=== PATIENT | female | born 1935 | race Two or more races ===

== ENCOUNTER 2023-09-19 12:03 | Emergency (ER) | payer OTHER ==
[~2023-09-19] VITALS: Ht 157.5 cm; Wt 59.0 kg
[2023-09-19 13:33] LABS: BASOPHILS % (AUTO) 0.2 % (0.0-2.0); HEMATOCRIT 34 % (33-45); HEMOGLOBIN 11.3 g/dL (11.5-14.8); LYMPHOCYTES # (AUTO) 0.5 K/uL (0.8-4.8); LYMPHOCYTES % (AUTO) 3.9 % (20.0-44.0); MEAN CORPUSCULAR HEMOGLOBIN 33 PG (26.0-33.0); MEAN CORPUSCULAR HGB CONC 33 g/dl (31.0-36.0); MEAN CORPUSCULAR VOLUME 99 fL (82-100); MONOCYTES # (AUTO) 0.4 K/uL (0.1-1.30); MONOCYTES % (AUTO) 3.3 % (2.0-12.0); NEUTROPHILS # (AUTO) 11.7 K/uL (1.8-8.9); NEUTROPHILS % (AUTO) 92.6 % (43.0-81.0); PLATELET COUNT (AUTO) 232 K/uL (150-450); RED BLOOD CELL COUNT(AUTO) 3.43 MIL/uL (4.0-5.2); RED CELL DISTRIBUTION WIDTH 15.1 % (11.5-15.0); WHITE BLOOD COUNT (AUTO) 12.7 K/uL (4.3-11.0)
[2023-09-19] MEDS ORDERED: APIX2.5T PO (13:45)
[2023-09-19] MEDS ORDERED: VALS80TA2 PO (13:45)
[2023-09-19] MEDS ORDERED: AMLO5TAB4 PO (13:45)
[2023-09-19] MEDS ORDERED: SENN-261 PO (13:45)
[2023-09-19] MEDS ORDERED: ASPI-1169 PO (13:45)
[2023-09-19 13:48] LABS: INR 0.97 (0.91-1.10); PARTIAL THROMBOPLASTIN TIME 28.6 SEC (24.3-34.3); PROTHROMBIN TIME 10.3 SECS (9.2-11.1)
[2023-09-19 13:51] LABS: ALANINE AMINOTRANSFERASE 23 U/L (12-78); ALBUMIN 3.3 g/dL (3.4-5.0); ALKALINE PHOSPHATASE 73 U/L (46-116); ASPARTATE AMINOTRANSFERASE 17 U/L (15-37); BILIRUBIN,DIRECT 0.1 mg/dL (0.0-0.2); BILIRUBIN,TOTAL 0.4 mg/dL (0.2-1.0); CALCIUM, SERUM 9.4 mg/dL (8.5-10.1); CARBON DIOXIDE 25 mmol/L (21-32); CHLORIDE 100 mmol/L (98-107); GLUCOSE 141 mg/dL (74-106); POTASSIUM 3.7 mmol/L (3.5-5.1); SODIUM SERUM 136 mmol/L (136-145); TOTAL PROTEIN, SERUM 8.5 g/dL (6.4-8.2); UREA NITROGEN, BLOOD 22 mg/dL (7-18)
[2023-09-19 14:00] LABS: LACTIC ACID 4.4 mmol/L (0.4-2.0)
[2023-09-19] MEDS ORDERED: CEFTRIAXONE 1GM BAG (ER ONLY) 50 ML IV ONE ×2 (14:00→14:14)
[2023-09-19 14:06] LABS: APPEARANCE,URINE CLOUDY (CLEAR); BILIRUBIN,URINE NEGATIVE (NEGATIVE); BLOOD, URINE NEGATIVE Ery/uL (NEGATIVE); COLOR,URINE DARK YELLOW (YELLOW); KETONES,URINE NEGATIVE (NEGATIVE); LEUKOCYTE ESTERASE ,URINE NEGATIVE (NEGATIVE); NITRITE, URINE NEGATIVE (NEGATIVE); PROTEIN,URINE 2+ mg/dl (NEGATIVE); UGLUCOSE NEGATIVE (NEGATIVE); UROBILINOGEN,URINE 0.2 EU/dL (0.2)
[2023-09-19] MEDS ORDERED: LEVETIRACETAM (500MG) 500 MG in IV NS 0.9% 100 ML IV ONE (15:00)
[2023-09-19] MEDS ORDERED: IV NS 0.9% 250 ML IV ONE (15:52)
[2023-09-19] MEDS ORDERED: IOHEXOL-350 100 ML VIAL IV ONE (15:52)
[2023-09-19] MEDS ORDERED: LABETALOL HCL IV 100MG VIAL ONE (16:16)
[2023-09-19] MEDS ORDERED: LABETALOL HCL IV 100MG VIAL IV ONE (16:30)
[2023-09-19] MEDS ORDERED: ONDANSETRON HCL/PF 4 MG/2 ML VIAL ONE (19:47)
[2023-09-19] MEDS ORDERED: ONDANSETRON HCL/PF - ER 4 MG/2 ML VIAL IV ONE (20:00)
[2023-09-19 23:45] VITALS: BP 123/83; TEMP 98.4; O2SAT 95
== END 2023-09-19 23:49 | disposition hospice, inpatient (51) ==
LOC: ER 12:15
DX: I61.5 Nontraumatic intracerebral hemorrhage, intraventricular (principal); I10 Essential (primary) hypertension; Z20.822 Contact with and (suspected) exposure to COVID-19
CPT/HCPCS: 99291; 70496; 96365; 71045; 96375; 87426; 51701; 84145; 85025; 80048; 87040 ×2; 83605 ×2; 80076; 81003; 36415; 84484; 85730; 82962; 70450; 96368; 93005; J3490; J2405 ×2; J7030 ×3; J7050; A4223; J0696; J1953; Q9967

== ENCOUNTER 2025-02-05 02:27 | Inpatient (IN) | payer OTHER ==
[~2025-02-05] VITALS: Ht 154.9 cm; Wt 63.0 kg
[~2025-02-05 02:27] MED LIST: AMLO5TAB4 GT; APIX2.5T PO; ASPI-1169 PO; SENN-261 GT; VALS80TA2 GT
[2025-02-05 03:19] LABS: BASOPHILS % (AUTO) 0.4 % (0.0-2.0); EOSINOPHILS # (AUTO) 0.5 K/uL (0.0-0.7); EOSINOPHILS % (AUTO) 5.9 % (0.0-6.0); HEMATOCRIT 38 % (33-45); HEMOGLOBIN 13.2 g/dL (11.5-14.8); LYMPHOCYTES % (AUTO) 11.3 % (20.0-44.0); MEAN CORPUSCULAR HEMOGLOBIN 35 PG (26.0-33.0); MEAN CORPUSCULAR HGB CONC 35 g/dl (31.0-36.0); MEAN CORPUSCULAR VOLUME 102 fL (82-100); MONOCYTES # (AUTO) 0.4 K/uL (0.1-1.30); MONOCYTES % (AUTO) 4.6 % (2.0-12.0); NEUTROPHILS # (AUTO) 7.2 K/uL (1.8-8.9); NEUTROPHILS % (AUTO) 77.8 % (43.0-81.0); PLATELET COUNT (AUTO) 212 K/uL (150-450); RED BLOOD CELL COUNT(AUTO) 3.73 MIL/uL (4.0-5.2); RED CELL DISTRIBUTION WIDTH 13.7 % (11.5-15.0); WHITE BLOOD COUNT (AUTO) 9.3 K/uL (4.3-11.0)
[2025-02-05 03:35] LABS: ALANINE AMINOTRANSFERASE 20 U/L (12-78); ALBUMIN 3.5 g/dL (3.4-5.0); ALKALINE PHOSPHATASE 85 U/L (46-116); ASPARTATE AMINOTRANSFERASE 19 U/L (15-37); BILIRUBIN,DIRECT 0.2 mg/dL (0.0-0.2); BILIRUBIN,TOTAL 0.6 mg/dL (0.2-1.0); CALCIUM, SERUM 8.9 mg/dL (8.5-10.1); CARBON DIOXIDE 29 mmol/L (21-32); CHLORIDE 100 mmol/L (98-107); CREATININE 0.8 mg/dL (0.6-1.3); GLUCOSE 109 mg/dL (74-106); POTASSIUM 4.1 mmol/L (3.5-5.1); SODIUM SERUM 136 mmol/L (136-145); TOTAL PROTEIN, SERUM 8.2 g/dL (6.4-8.2); UREA NITROGEN, BLOOD 24 mg/dL (7-18)
[2025-02-05 03:36] LABS: LACTIC ACID 1.2 mmol/L (0.4-2.0)
[2025-02-05 04:03] LABS: INR 0.96 (0.91-1.10); PARTIAL THROMBOPLASTIN TIME 26.2 SEC (24.3-34.3); PROTHROMBIN TIME 10.2 SECS (9.2-11.1)
[2025-02-05] MEDS ORDERED: CEFTRIAXONE 1GM BAG (ER ONLY) 50 ML IV ONE (04:21)
[2025-02-05] MEDS ORDERED: AZITHROMYCIN 500 MG VIAL ONE ×2 (04:22)
[2025-02-05] MEDS: CEFTRIAXONE 1GM BAG (ER ONLY) 1 GM/50 ML PIGGYBACK IV ONE (04:28)
[2025-02-05 04:49] LABS: APPEARANCE,URINE SLIGHTLY CLOUDY (CLEAR); BILIRUBIN,URINE NEGATIVE (NEGATIVE); BLOOD, URINE 1+ Ery/uL (NEGATIVE); COLOR,URINE YELLOW (YELLOW); KETONES,URINE NEGATIVE (NEGATIVE); LEUKOCYTE ESTERASE ,URINE 2+ (NEGATIVE); NITRITE, URINE NEGATIVE (NEGATIVE); PROTEIN,URINE TRACE mg/dl (NEGATIVE); UGLUCOSE NEGATIVE (NEGATIVE); UROBILINOGEN,URINE 0.2 EU/dL (0.2)
[2025-02-05] MEDS: AZITHROMYCIN 500 MG in IV D5W 250 ML IV ONE (05:02)
[2025-02-05 05:15] LABS: ADD URINE CULTURE YES; BACTERIA,URINE Moderate /HPF (None Seen)
[2025-02-05 05:16] LABS: URINE AMORPHOUS URATE Moderate /HPF (None Seen)
[2025-02-05] MEDS ORDERED: MAGNESIUM HYDROXIDE 30 ML UDC PO PRN (05:30)
[2025-02-05] MEDS ORDERED: MAG HYDROX/AL HYDROX/SIMETH 30 ML UDC PO PRN (05:30)
[2025-02-05] MEDS ORDERED: ACETAMINOPHEN 650 MG/SUPP.RECT RC PRN (05:30)
[2025-02-05] MEDS ORDERED: Z GUARD REMEDY 4 OZ OINT TP PRN (05:30)
[2025-02-05] MEDS ORDERED: ONDANSETRON HCL/PF 4 MG/2 ML VIAL IVP PRN (05:30)
[2025-02-05 08:00] VITALS: BP 113/70; TEMP 97.9; O2SAT 95
[2025-02-05] MEDS ORDERED: LACT-209 GT (08:03)
[2025-02-05] MEDS ORDERED: POLY15DR17 EACHEYE (08:13)
[2025-02-05 08:59] VITALS: BP 113/70; TEMP 97.9; O2SAT 95
[2025-02-05] MEDS: PANTOPRAZOLE 40 MG VIAL IV SCH (09:02)
[2025-02-05] MEDS: ENOXAPARIN SODIUM 40 MG/0.4 ML DISP.SYRIN SQ SCH (09:04)
[2025-02-05 12:30] VITALS: BP 141/86; TEMP 97.7; O2SAT 100
[2025-02-05] MEDS: diphenhydrAMINE HCL/ZINC ACET CREAM 28.3 GM TUBE TP PRN (15:10)
[2025-02-05 16:00] VITALS: BP 97/64; TEMP 97.9; O2SAT 96
[2025-02-05] MEDS: JEVITY 1.2 CAL 1,000 ML BOTTLE GT PRN (17:22)
[2025-02-05] MEDS: HYDROCORTISONE 1% CREAM 28.35 GM TUBE TP SCH (17:30)
[2025-02-05 20:00] VITALS: BP 120/74; TEMP 98.1; O2SAT 100
[2025-02-05] MEDS: MUPIROCIN OINT 2% 22 GM TUBE NS SCH (20:02)
[2025-02-05] MEDS: SENNOSIDES 8.6 MG TABLET GT SCH (21:31)
[2025-02-06 06:35] LABS: BASOPHILS # (AUTO) 0.1 K/uL (0.0-0.2); BASOPHILS % (AUTO) 1.3 % (0.0-2.0); EOSINOPHILS # (AUTO) 0.5 K/uL (0.0-0.7); EOSINOPHILS % (AUTO) 7.2 % (0.0-6.0); HEMATOCRIT 36 % (33-45); LYMPHOCYTES # (AUTO) 0.8 K/uL (0.8-4.8); LYMPHOCYTES % (AUTO) 11.1 % (20.0-44.0); MEAN CORPUSCULAR HEMOGLOBIN 34 PG (26.0-33.0); MEAN CORPUSCULAR HGB CONC 33 g/dl (31.0-36.0); MEAN CORPUSCULAR VOLUME 102 fL (82-100); MONOCYTES # (AUTO) 0.4 K/uL (0.1-1.30); MONOCYTES % (AUTO) 5.9 % (2.0-12.0); NEUTROPHILS # (AUTO) 5.5 K/uL (1.8-8.9); NEUTROPHILS % (AUTO) 74.5 % (43.0-81.0); PLATELET COUNT (AUTO) 175 K/uL (150-450); RED BLOOD CELL COUNT(AUTO) 3.53 MIL/uL (4.0-5.2); RED CELL DISTRIBUTION WIDTH 13.5 % (11.5-15.0); WHITE BLOOD COUNT (AUTO) 7.3 K/uL (4.3-11.0)
[2025-02-06 07:21] LABS: CALCIUM, SERUM 8.8 mg/dL (8.5-10.1); CREATININE 0.8 mg/dL (0.6-1.3); MAGNESIUM 2.4 mg/dL (1.8-2.4); PHOSPHORUS 3.6 mg/dL (2.5-4.9)
[2025-02-06 08:00] VITALS: BP 116/84; TEMP 97.7; O2SAT 95
[2025-02-06] MEDS: CEFTRIAXONE 1 G in IV D5W 50 ML IV SCH (08:08)
[2025-02-06] MEDS: PANTOPRAZOLE 40 MG/PACK PACK GT SCH (08:51)
[2025-02-06] MEDS: AZITHROMYCIN 500 MG in IV D5W 250 ML IV SCH (08:53)
[2025-02-06] MEDS: AMLODIPINE BESYLATE 5 MG TABLET PO SCH (08:53)
[2025-02-06 14:03] VITALS: O2SAT 97
[2025-02-06] MEDS: ALBUTEROL FS 2.5 MG/0.5 ML VIAL.NEB NEB PRN (14:03)
[2025-02-06] MEDS: IPRATROPIUM NEB FS 0.5 MG/2.5 ML AMPUL.NEB NEB PRN (14:03)
[2025-02-06 14:18] VITALS: O2SAT 100
[2025-02-06 16:00] VITALS: BP 99/69; TEMP 97.9; O2SAT 96
[2025-02-06 20:00] VITALS: BP_SYST 106; BP_SYST 128; BP_DIAS 49; BP_DIAS 70; TEMP 97.5; O2SAT 98
[2025-02-07 07:19] LABS: CALCIUM, SERUM 8.4 mg/dL (8.5-10.1); CREATININE 0.8 mg/dL (0.6-1.3); MAGNESIUM 2.2 mg/dL (1.8-2.4); POTASSIUM 4.1 mmol/L (3.5-5.1)
[2025-02-07 07:20] LABS: BASOPHILS # (AUTO) 0.1 K/uL (0.0-0.2); EOSINOPHILS # (AUTO) 0.5 K/uL (0.0-0.7); EOSINOPHILS % (AUTO) 6.2 % (0.0-6.0); HEMATOCRIT 37 % (33-45); HEMOGLOBIN 12.7 g/dL (11.5-14.8); LYMPHOCYTES # (AUTO) 0.9 K/uL (0.8-4.8); LYMPHOCYTES % (AUTO) 10.5 % (20.0-44.0); MEAN CORPUSCULAR HEMOGLOBIN 34 PG (26.0-33.0); MEAN CORPUSCULAR HGB CONC 34 g/dl (31.0-36.0); MEAN CORPUSCULAR VOLUME 102 fL (82-100); MONOCYTES # (AUTO) 0.4 K/uL (0.1-1.30); MONOCYTES % (AUTO) 4.5 % (2.0-12.0); NEUTROPHILS # (AUTO) 6.4 K/uL (1.8-8.9); NEUTROPHILS % (AUTO) 77.8 % (43.0-81.0); PLATELET COUNT (AUTO) 128 K/uL (150-450); RED BLOOD CELL COUNT(AUTO) 3.69 MIL/uL (4.0-5.2); RED CELL DISTRIBUTION WIDTH 13.8 % (11.5-15.0); WHITE BLOOD COUNT (AUTO) 8.2 K/uL (4.3-11.0)
[2025-02-07 07:34] VITALS: O2SAT 96
[2025-02-07] MEDS: ALBUTEROL FS 2.5 MG/0.5 ML VIAL.NEB NEB SCH (07:34)
[2025-02-07] MEDS: IPRATROPIUM NEB FS 0.5 MG/2.5 ML AMPUL.NEB NEB SCH (07:34)
[2025-02-07 07:49] VITALS: O2SAT 99
[2025-02-07 08:00] VITALS: BP 129/88; TEMP 99.1; O2SAT 96
[2025-02-07] MEDS ORDERED: LEVO500T90 PO (12:28)
[2025-02-07 12:44] VITALS: O2SAT 97
[2025-02-07 12:53] VITALS: O2SAT 99
[2025-02-07 16:00] VITALS: BP 103/69; TEMP 98.4; O2SAT 96
== END 2025-02-07 16:40 | disposition hospice, home (50) | DRG 463 ==
LOC: ER 02:33 → TELE 05:18 → TELE1 06:00 → TELE 06:13 → MED 12:52
PROVIDERS: ADMIT Nurse Practitioner Acute Care; ATTEND Nurse Practitioner Acute Care
DX: N39.0 Urinary tract infection, site not specified (principal); J18.9 Pneumonia, unspecified organism; I69.354 Hemiplegia and hemiparesis following cerebral infarction affecting left non-dominant side; F03.90 Unspecified dementia, unspecified severity, without behavioral disturbance, psychotic disturbance, mood disturbance, and anxiety; Z93.1 Gastrostomy status; R13.10 Dysphagia, unspecified; Z79.82 Long term (current) use of aspirin; Z79.01 Long term (current) use of anticoagulants; I10 Essential (primary) hypertension; Z74.01 Bed confinement status; R21 Rash and other nonspecific skin eruption; B96.89 Other specified bacterial agents as the cause of diseases classified elsewhere; L98.8 Other specified disorders of the skin and subcutaneous tissue; Z20.822 Contact with and (suspected) exposure to COVID-19
CPT/HCPCS: 36415; 71045-TC; 80048-TC; 80076-TC; 81001; 83605-TC; 83735-TC; 84100-TC; 84484-TC; 85025-TC; 85730-TC; 87040-TC; 87086-TC; 94799-TC; A4223; A6213; G0378; J0456; J0696; J1650; J2470; J7050; J7060